=== PATIENT | male | born 1935 | race Caucasian/White ===

== ENCOUNTER → 2017-06-08 | Outpatient (CLI) | payer OTHER ==
[2017-06-08 17:34] LABS: BASO % 0.2 %; BASO ABS # 0.01 K/uL (0-0.2); EOS % 0.2 %; EOS ABS # 0.01 K/uL (0-0.5); HEMATOCRIT 37.7 % (42-52); HEMOGLOBIN 12.8 g/dL (14.0-18.0); IG# 0.02 K/uL (0.00-0.02); LYMPH % 22.9 %; LYMPH ABS # 1.42 K/uL (1.2-3.4); MEAN CELL VOLUME 92.6 fL (80-100); MEAN CORPUSCULAR HEMOGLOBIN 31.4 pg (25-34); MEAN PLATELET VOLUME 8.9 fL (7.4-10.4); MONO % 9.2 %; MONO ABS # 0.57 K/uL (0.11-0.59); NEUT % 67.2 %; NEUT ABS # 4.16 K/uL (1.4-6.5); PLATELET COUNT 238 K/uL (130-400); RED CELL DISTRIBUTION WIDTH CV 14.1 % (11.5-14.5); RED CELL DISTRIBUTION WIDTH SD 47.8 fL (36.4-46.3); WHITE BLOOD COUNT 6.19 K/uL (4.8-10.8)
--- NOTE | 2017-06-08 17:55 | DIAGNOSTIC IMAGING REPORT ---
PA CHEST RADIOGRAPH AND UPRIGHT AND SUPINE AP RADIOGRAPHS OF THE ABDOMEN CLINICAL HISTORY: Constipation. COMPARISON STUDY: No previous studies for comparison. FINDINGS: No pneumothorax or pleural effusion is noted. No consolidation is identified. There is no evidence for pulmonary edema. Linear right infrahilar opacity suggests atelectasis or scarring. Cardiomediastinal silhouette is normal. There is no free air. The bowel gas pattern is normal. There is a moderate amount stool within the colon. There is minimal stool within the rectum. There is marked joint space narrowing of both hips. IMPRESSION: 1. No free air or evidence of bowel obstruction. 2. Moderate amount of stool within the colon. 3. No acute cardiopulmonary findings. 4. Severe bilateral hip arthritis. Electronically signed by: Lester Sierra M.D. 06/08/2017 5:54 PM Dictated Date/Time: 06/08/2017 5:53 PM
[2017-06-08 17:56] LABS: ALBUMIN 3.4 gm/dl (3.4-5.0); ALT/SGPT 29 U/L (12-78); BLOOD UREA NITROGEN 18 mg/dl (7-18); CALCIUM 9.2 mg/dl (8.5-10.1); CARBON DIOXIDE 28 mmol/L (21-32); CREATININE 0.95 mg/dl (0.60-1.40); GLUCOSE 91 mg/dl (70-99); POTASSIUM 4.2 mmol/L (3.5-5.1); SODIUM 131 mmol/L (136-145)
[2017-06-08 18:06] LABS: ALKALINE PHOSPHATASE 115 U/L (45-117); AST/SGOT 23 U/L (15-37); TOTAL PROTEIN 8.6 gm/dl (6.4-8.2)
== END | disposition home or self-care (01) ==
LOC: C.RAD 16:43
PROVIDERS: ATTEND Physician Assistant
DX: K59.00 Constipation, unspecified (principal); M16.0 Bilateral primary osteoarthritis of hip

== ENCOUNTER → 2017-06-14 | Outpatient (CLI) | payer OTHER | END | disposition home or self-care (01) | LOC: C.LAB1850 15:27 | PROVIDERS: ATTEND Physician Assistant | DX: R35.0 Frequency of micturition (principal) ==

== ENCOUNTER 2019-01-16 15:37 | Inpatient (IN) ==
--- OUTSIDE RECORDS SUMMARY | 2019-01-16 15:39 | External Medical Summary | Continuity of Care Document ---
:1935 Author Name Jean Carlos Lawrence, Provider Address Unavailable Unavailable , Care Team Providers Name Role Phone Unavailable Unavailable Unavailable Regla Ro Unavailable [email or web address] REGLA ROBLES Unavailable Unavailable Unavailable Unavailable Unavailable Problems BMI less than 19,adult (V85.0) (Z68.1) Urinary frequency (788.41) (R35.0) Decreased oral intake (783.9) (R63.8) Constipation (564.00) (K59.00) Anemia (285.9) (D64.9) Bug bites (919.4) (W57.XXXA) Multiple joint pain (719.49) (M25.50) Altered mental status (780.97) (R41.82) Severe muscle deconditioning (781.99) (R29.898) Nocturia associated with benign prostatic hyperplasia (600.0 1) (N40.1) Allergies and Adverse Reactions No Known Drug Allergies (Allergy) Medications Finasteride 5 MG Oral Tablet; TAKE ONE TABLET BY MOUTH ONCE DAILY SELENA Robles Start: 08-Jan-2018 Quantity: 30 Refills: 2 Procedures History of cataract surgery Status: Comp leted Immunizations Immunizations not documented Social History - Smoking Status Never smoker Never smoker Interventions Medication ChangesFinasteride 5 MG Oral Tablet - [facility]; To Be Done: 23 Jan 2018 Plan of Treatment Planned Observations Planned Goals not documented Results No Known Results Results not documented Encounters Appointment; Regla Robles CRNP 08-Jan-2018 16:00 Encounter Diagnosis: Problem not documented Appointment; Regla Robles CRNP 13-Sep-2017 13:00 Encounter Diagnosis: Problem not documented Appointment; Paulette Buckner PA-C 14-Jun-2017 14:15 Encounter Diagnosis: Problem not documented Appointment; Hermelinda Tovar PA-C 08-Jun-2017 16:00 Encounter Diagnosis: Problem not documented
[2019-01-16] MEDS ORDERED: ACETAMINOPHEN 1,000 MG/100 ML VIAL IV STA (16:38)
[2019-01-16] MEDS ORDERED: SODIUM CHLORIDE 0.9% 1000ML 1,000 ML IV SCH (16:45)
[2019-01-16 17:18] LABS: Basophils # (auto) 0.01 K/uL (0-0.2); Basophils % (auto) 0.1 %; Eosinophils # (auto) 0.01 K/uL (0-0.5); Eosinophils % (auto) 0.1 %; Hematocrit (blood only) 39.7 % (42-52); Hemoglobin 13.3 g/dL (14.0-18.0); Immature Granulocytes # (auto) 0.05 K/uL (0.00-0.02); Immature Granulocytes % (auto) 0.4 %; Lymphocytes # (auto) 1.13 K/uL (1.2-3.4); Lymphocytes % (auto) 9.6 %; Mean Corpuscular Hemoglobin 30.5 pg (25-34); Mean Corpuscular Hgb Conc 33.5 g/dL (32-36); Mean Corpuscular Volume 91.1 fL (80-100); Mean Platelet Volume 9.1 fL (7.4-10.4); Monocytes # (auto) 0.89 K/uL (0.11-0.59); Monocytes % (auto) 7.5 %; Neutrophils % (auto) 82.3 %; Platelet Count 332 K/uL (130-400); RDW Coefficient of Variation 14.2 % (11.5-14.5); RDW Standard Deviation 46.5 fL (36.4-46.3); Red Blood Count 4.36 M/uL (4.7-6.1); White Blood Count 11.79 K/uL (4.8-10.8)
[2019-01-16 17:45] LABS: Albumin Level 2.6 gm/dl (3.4-5.0); Calcium 9.3 mg/dl (8.5-10.1); Creatinine Clr Calc Pharmacy 43.2 ml/min; Est GFR (African American) 87.7; Est GFR (Non-African American) 75.7
[2019-01-16 17:54] LABS: Albumin Globulin Ratio 0.5 (0.9-2); Bilirubin,Total 1.1 mg/dl (0.2-1); Globulin 5.1 gm/dl (2.5-4.0); Thyroid Stimulating Hormone 1.85 uIu/ml (0.300-4.500); Total Protein 7.7 gm/dl (6.4-8.2); Troponin I 3.1 ng/ml (0-0.045)
--- NOTE | 2019-01-16 18:09 | CT Scan Report ---
CT SCAN OF THE BRAIN WITHOUT IV CONTRAST CLINICAL HISTORY: Fall. Weakness. COMPARISON STUDY: CT of the brain dated 01/05/2018. TECHNIQUE: Unenhanced axial CT scan of the brain is performed from the vertex to the skull base. A do se lowering technique was utilized adhering to the principles of ALARA. FINDINGS: Brain parenchyma: There are age-related involutional changes noting mild to moderate subcortical and periventricular microangiopathic change. There is no hemorrhage, mass effect, or evidence of acute t erritorial ischemia by CT criteria. 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 Hall-white matter differentiation is preserved. No extra-axial fluid collect ion is seen. Ventricles, sulci, cisterns: Prominent secondary to involutional change. Intracranial vasculature: There is atherosclerotic calcification of the cavernous carotid and vertebr al arteries. Calvarium: The skeletal structures are osteopenic. No depressed calvarial fracture is identified. Sinuses and mastoids: The visualized paranasal sinuses are clear. The mastoid air cells are well pneu matized. Orbits: The bony orbits are grossly intact. There are bilateral ocular lens implants. IMPRESSION: There is no hemorrhage, mass effect, or evidence of acute territorial ischemia by CT francine louis. Electronically signed by: Zane Haines M.D. 01/16/2019 6:07 PM
--- NOTE | 2019-01-16 18:13 | CT Scan Report ---
CT SCAN OF THE CERVICAL SPINE CLINICAL HISTORY: Fall. COMPARISON STUDY: No priors. TECHNIQUE: CT scan of the cervical spine is performed from the skull base to the upper thoracic spine . Images are reviewed in the axial, sagittal, and coronal planes. IV contrast was not administered fo r this examination. A dose lowering technique was utilized adhering to the principles of ALARA. CT DOSE: 987.04 mGy.cm FINDINGS: Skeletal structures: The skeletal structures are osteopenic. There is no evidence of fracture or subl uxation involving the cervical spine. Vertebral body height and alignment are maintained. Small anter ior osteophytes are seen throughout. The odontoid process and lateral masses are intact. The atlantoa xial articulation is preserved noting productive degenerative change. The spinous processes appear in tact. There is moderate multilevel cervical spondylosis. Uncovertebral and facet arthropathy contribu te to neural foraminal narrowing at several levels. Intervertebral discs: Moderate disc space narrowing is seen at C4-C5 and C5-C6. Mild disc space narro wing is seen at the remaining cervical levels. Central canal: Posterior disc osteophyte complexes from C3-C4 through C5-C6 likely contribute to mild multilevel acquired compromise the central canal. Soft tissues: The prevertebral and paraspinous soft tissues are within normal limits. Secretions/flui d are noted in the pharynx. There is atherosclerotic calcification of the carotid bulbs. Calvarium: The visualized calvarium at the skull base appears intact. Brain parenchyma: Partially visualized brain parenchyma the skull base is within normal limits. Sinuses and mastoids: The visualized paranasal sinuses are clear. The mastoid air cells are well pneu matized. Lung apices: Clear as visualized. IMPRESSION: 1. There is no evidence of fracture or subluxation involving the cervical spine. 2. Osteopenia and spondylotic change as above. Electronically signed by: Zane Haines M.D. 01/16/2019 6:12 PM
[2019-01-16 18:41] LABS: Potassium 3.8 mmol/L (3.5-5.1)
[2019-01-16 18:49] LABS: Magnesium 2.1 mg/dl (1.8-2.4)
--- NOTE | 2019-01-16 19:11 | XRay Report ---
SINGLE VIEW CHEST CLINICAL HISTORY: Generalized weakness. FINDINGS: 2 AP, portable, upright chest radiographs are compared to study dated 01/05/2018. The examin ation is degraded by portable technique and patient rotation. The heart is top normal for projection noting atherosclerotic calcification of the thoracic aorta. The lungs are hyperinflated. Chronic inte rstitial thickening is similar to previous. There are foci of bibasilar scarring/atelectasis. No airs pace consolidation or large pleural effusion is identified. No pneumothorax is seen. The bony thorax is grossly intact. IMPRESSION: There is no acute cardiopulmonary abnormality. Electronically signed by: Zane Haines M.D. 01/16/2019 7:09 PM
[2019-01-16 19:22] LABS: Appearance Urine Clear (Clear); Bacteria Urine Automated Negative (Negative); Blood Urine Negative (Negative); Color Urine Dark Yellow; Epithelial Cell Urine Auto >30 /lpf (0-5); Glucose Urine UA Negative (Negative); Leukocyte Esterase Urine Negative (Negative); Nitrite Urine Negative (Negative); Protein Urine Trace (Negative); Specific Gravity Urine 1.033 (1.000-1.030); Urobilinogen Urine Negative (Negative)
[2019-01-16 19:25] LABS: Bilirubin Urine Negative (Negative); Ictotest Urine Negative (Negative)
[2019-01-16 19:26] LABS: Ketones Urine 3+ (Negative)
[2019-01-16 19:34] LABS: Renal Epithelial Cells Urine 0-5 /lpf (0-5)
--- NOTE | 2019-01-16 20:08 | Emergency Department Note ---
Entered by Naomi Mcnamara acting as a scribe for History of Present Illness General Chief complaint: Weakness Stated complaint: UNABLE TO AMBULATE, WEAKNESS Time Seen by Provider: 01/16/19 16:21 Source: patient and family History of Present Illness Onset (ago): week(s) 1 Location: head (Weakness) Severity: similar to prior episodes Pain Consistency: + other (Worsening) Maximum Pain Intensity: 6 Quality: + other (Weakness) Exacerbated By: + movement Associated symptoms: + loss of appetite, + weakness and + other (Positive recent falls. Negative head trauma. ); no fever/chills Treatments prior to arrival: none The patient is an 83 year old male who presents to the Emergency Department via EMS complaining of worsening weakness starting 1 week ago. The patients family reports that the patient is very weak and unable to walk. They state that the patient has fallen a few times in the past few days. They explain that from falling, the patient has multiple abrasions on his hips, buttocks and shoulder and that they may be turning into bedsores. They note that the patient compla ins of always having to go to the bathroom. They add that the patient has no appetite and doesnt drink much fluid but that this is not a new problem. The patients family reports that [facility] for [facility] symptoms but were told to come to the ED. They explain that when the patient moves around his pain from his abrasions/sores worsen. They state that the patient took no medications [employer]. They note that the patient currently takes no medications. They deny that the patient has had recent fevers, chills or head trauma. Home Medications Home Medications Medication Instructions Recorded Confirmed Type No Known Home Medications 01/16/19 01/16/19 History Allergies Allergy/AdvReac Type Severity Reaction Status Date / Time No Known Allergies Allergy Unverified 01/16/19 16:37 Past Med/Surg History Medical History Severe protein-calorie malnutrition (Chronic) Weakness (Chronic) Weight loss (Chronic) Dementia Family History Other No pertinent family history Social History Preferred Language: Turkmen Communication Ability: Effective Current Living Situation Comment: [facility] current occupational status: retired Feels Safe at Home: Yes Smoking Status: Never smoker Review of Systems See HPI for pertinent positives & negatives. and A total of 10 systems reviewed and were otherwise negative Physical Exam Vital Signs Vital Signs - 24 hr 01/16/19 15:48 01/16/19 17:06 01/16/19 19:13 Temperature 36.4 C L Temperature Source Oral Sepsis Recent Fever Within 48 Hours No Sepsis New/Unexplained Change in Mental Status No Sepsis Action Taken by Nursing No Action Required Pulse Rate 92 H 75 Pulse Rate [Apical] 83 77 Pulse Rate from SpO2 Sensor 73 Respiratory Rate 18 18 19 Blood Pressure 156/83 H 121/73 Blood Pressure [Left Arm] 153/83 H 148/77 H Blood Pressure Mean 107 89 Blood Pressure Mean [Left Arm] 106 100 Pulse Oximetry 100 100 98 Oxygen Delivery Method Room Air Room Air Room Air 01/16/19 19:30 01/16/19 20:00 01/16/19 21:00 Temperature Temperature Source Sepsis Recent Fever Within 48 Hours Sepsis New/Unexplained Change in Mental Status Sepsis Action Taken by Nursing Pulse Rate 76 73 74 Pulse Rate [Apical] Pulse Rate from SpO2 Sensor 76 70 74 Respiratory Rate 18 16 18 Blood Pressure 102/66 124/67 125/72 Blood Pressure [Left Arm] Blood Pressure Mean 78 86 89 Blood Pressure Mean [Left Arm] Pulse Oximetry 98 97 96 Oxygen Delivery Method 01/16/19 21:13 Temperature Temperature Source Sepsis Recent Fever Within 48 Hours Sepsis New/Unexplained Change in Mental Status Sepsis Action Taken by Nursing Pulse Rate 73 Pulse Rate [Apical] Pulse Rate from SpO2 Sensor Respiratory Rate 16 Blood Pressure 124/67 Blood Pressure [Left Arm] Blood Pressure Mean Blood Pressure Mean [Left Arm] Pulse Oximetry 97 Oxygen Delivery Method Room Air GENERAL: Patient is frail and debilitated. HEENT: No acute trauma, normocephalic atraumatic, mucous membranes dry, no nasal congestion, no scleral icterus. NECK: No stridor, no adenopathy, no meningismus, trachea is midline. Non-tender cervical spine. LUNGS: Clear to auscultation bilaterally, no wheeze, no rhonchi, breath sounds equal. HEART: Without murmurs gallops or rubs, regular rate and rhythm. ABDOMEN: Soft, nontender, bowel sounds positive, no hernias, no peritonitis. EXTREMITIES: Contusion and abrasion to anterior left knee. No gross deformity. Skin abrasions to both shoulders. No gross deformities. Skin breakdown to right sacral area and hip. No surrounding erythema. NEUROLOGIC: Awake and alert, no acute motor or sensory deficits, no focal weakness. SKIN: No jaundice, no diaphoresis. Course 1626: The patient was evaluated in room C10, and a complete history and physical examination were performed. 1730: I updated the patient at this time. 1829: I discussed the patients case with Dr. Obed MANZANO hospitalist. She will evaluate the patient for further management. 1840: I updated the patient and his family at this time. 185: The patient refused his X-Ray of his knee. 1925: I updated the patient and his family on the patients results at this time. Consultations Consultation #1: I discussed the patients case with Dr. Obed MANZANO hospitalist. She will evaluate the patient for further management. Time: 18:29 Administered Medications Discontinued Medications Sodium Chloride (Nss 1000ml) 1,000 mls @ 999 mls/hr IV .[id number] ARCELIA Stop: 01/16/19 17:45 Last Infusion: 01/16/19 18:29 Dose: 0 mls/hr Documented by: [id number] Admin: 01/16/19 17:06 Dose: 999 mls/hr Documented by: [id number] Acetaminophen (Ofirmev) 1,000 mg in 100 mls @ 400 mls/hr IV NOW STA Stop: 01/16/19 16:52 Last Infusion: 01/16/19 18:29 Dose: 0 mls/hr Documented by: [id number] Admin: 01/16/19 17:06 Dose: 400 mls/hr Documented by: [id number] Medical Decision Making Differential Diagnosis Differentials include intracranial bleeding, CVA, cervical spine injury, fracture, dehydration, anemia, UTI, pneumonia, renal failure, live failure, NE and debilitation amongst others. Medical Records Attestation: I reviewed the patient's medical records. Home Medications Current Medication List: was personally reviewed by me Laboratory Data Attestation: I reviewed the patient's lab results. Result diagrams: 01/16/19 17:09 01/16/19 18:07 Lab Results 01/16/19 01/16/19 01/16/19 Range/Units 17:09 17:09 18:07 WBC 11.79 H (4.8-10.8) K/uL RBC 4.36 L (4.7-6.1) M/uL Hgb 13.3 L (14.0-18.0) g/dL Hct 39.7 L (42-52) % MCV 91.1 (80-100) fL MCH 30.5 (25-34) pg MCHC 33.5 (32-36) g/dL RDW Std Deviation 46.5 H (36.4-46.3) fL RDW Coeff of [place] 14.2 (11.5-14.5) % Plt Count 332 (130-400) K/uL MPV 9.1 (7.4-10.4) fL Immature Gran % (Auto) 0.4 % Neut % (Auto) 82.3 % Lymph % (Auto) 9.6 % [place] % (Auto) 7.5 % Eos % (Auto) 0.1 % Baso % (Auto) 0.1 % Immature Gran # (Auto) 0.05 H (0.00-0.02) K/uL Neut # (Auto) 9.70 H (1.4-6.5) K/uL Lymph # (Auto) 1.13 L (1.2-3.4) K/uL [place] # (Auto) 0.89 H (0.11-0.59) K/uL Eos # (Auto) 0.01 (0-0.5) K/uL Baso # (Auto) 0.01 (0-0.2) K/uL Sodium 136 (136-145) mmol/L Potassium 3.8 (3.5-5.1) mmol/L Chloride 102 (98-107) mmol/L Carbon Dioxide 25 (21-32) mmol/L Anion Gap 9.0 (3-11) BUN 25 H (7-18) mg/dl Creatinine 0.93 (0.6-1.4) mg/dl Est Cr Clr Drug Dosing 43.2 ml/min Est GFR ( Amer) 87.7 Est GFR (Non-Af Amer) 75.7 BUN/Creatinine Ratio 27.0 H (10-20) Glucose 80 (70-99) mg/dl Calcium 9.3 (8.5-10.1) mg/dl Magnesium 2.1 (1.8-2.4) mg/dl Total Bilirubin 1.1 H (0.2-1) mg/dl AST 60 H (15-37) U/L ALT 35 (12-78) U/L Alkaline Phosphatase 127 H (45-117) U/L Total Creatine Kinase 232 (39-308) U/L Troponin I 3.100 H* (0-0.045) ng/ml Total Protein 7.7 (6.4-8.2) gm/dl Albumin 2.6 L (3.4-5.0) gm/dl Globulin 5.1 H (2.5-4.0) gm/dl Albumin/Globulin Ratio 0.5 L (0.9-2) TSH 1.850 (0.300-4.500) uIu/ml Urine Color Urine Appearance (Clear) Urine pH (4.5-7.5) Ur Specific [place] (1.000-1.030) Urine Protein (Negative) Urine Glucose (UA) (Negative) Urine Ketones (Negative) Urine Blood (Negative) Urine Nitrite (Negative) Urine Bilirubin (Negative) Urine Urobilinogen (Negative) Ur Leukocyte Esterase (Negative) Urine WBC (Auto) (0-5) /hpf Urine RBC (Auto) (0-4) /hpf U Hyaline Cast (Auto) (0-5) /lpf U Epithel Cells (Auto) (0-5) /lpf Urine Bacteria (Auto) (Negative) Ur Renal Epithelial Cell (0-5) /lpf Granular Casts (0) /lpf 01/16/19 Range/Units 19:08 WBC (4.8-10.8) K/uL RBC (4.7-6.1) M/uL Hgb (14.0-18.0) g/dL Hct (42-52) % MCV (80-100) fL MCH (25-34) pg MCHC (32-36) g/dL RDW Std Deviation (36.4-46.3) fL RDW Coeff of [place] (11.5-14.5) % Plt Count (130-400) K/uL MPV (7.4-10.4) fL Immature Gran % (Auto) % Neut % (Auto) % Lymph % (Auto) % [place] % (Auto) % Eos % (Auto) % Baso % (Auto) % Immature Gran # (Auto) (0.00-0.02) K/uL Neut # (Auto) (1.4-6.5) K/uL Lymph # (Auto) (1.2-3.4) K/uL [place] # (Auto) (0.11-0.59) K/uL Eos # (Auto) (0-0.5) K/uL Baso # (Auto) (0-0.2) K/uL Sodium (136-145) mmol/L Potassium (3.5-5.1) mmol/L Chloride (98-107) mmol/L Carbon Dioxide (21-32) mmol/L Anion Gap (3-11) BUN (7-18) mg/dl Creatinine (0.6-1.4) mg/dl Est Cr Clr Drug Dosing ml/min Est GFR ( Amer) Est GFR (Non-Af Amer) BUN/Creatinine Ratio (10-20) Glucose (70-99) mg/dl Calcium (8.5-10.1) mg/dl Magnesium (1.8-2.4) mg/dl Total Bilirubin (0.2-1) mg/dl AST (15-37) U/L ALT (12-78) U/L Alkaline Phosphatase (45-117) U/L Total Creatine Kinase (39-308) U/L Troponin I (0-0.045) ng/ml Total Protein (6.4-8.2) gm/dl Albumin (3.4-5.0) gm/dl Globulin (2.5-4.0) gm/dl Albumin/Globulin Ratio (0.9-2) TSH (0.300-4.500) uIu/ml Urine Color Dark Yellow Urine Appearance Clear (Clear) Urine pH 5.0 (4.5-7.5) Ur Specific [place] 1.033 H (1.000-1.030) Urine Protein Trace H (Negative) Urine Glucose (UA) Negative (Negative) Urine Ketones 3+ H (Negative) Urine Blood Negative (Negative) Urine Nitrite Negative (Negative) Urine Bilirubin Negative (Negative) Urine Urobilinogen Negative (Negative) Ur Leukocyte Esterase Negative (Negative) Urine WBC (Auto) 1-5 (0-5) /hpf Urine RBC (Auto) 5-10 H (0-4) /hpf U Hyaline Cast (Auto) 10-30 H (0-5) /lpf U Epithel Cells (Auto) >30 H (0-5) /lpf Urine Bacteria (Auto) Negative (Negative) Ur Renal Epithelial Cell 0-5 (0-5) /lpf Granular Casts 1-5 H (0) /lpf Imaging Data Radiologist's Impression: Radiology results as stated below per my review and the radiologist's interpretation: CT SCAN OF THE BRAIN WITHOUT IV CONTRAST CLINICAL HISTORY: Fall. Weakness. COMPARISON STUDY: CT of the brain dated 01/05/2018. TECHNIQUE: Unenhanced axial CT scan of the brain is performed from the vertex to the skull base. A dose lowering technique was utilized adhering to the principles of ALARA. FINDINGS: Brain parenchyma: There are age-related involutional changes noting mild to moderate subcortical and periventricular microangiopathic change. There is no hemorrhage, mass effect, or evidence of acute territorial ischemia by CT criter ia. 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 Hall-white matter differentiation is preserved. No extra-axial fluid collection is seen. Ventricles, sulci, cisterns: Prominent secondary to involutional change. Intracranial vasculature: There is atherosclerotic calcification of the cavernous carotid and vertebral arteries. Calvarium: The skeletal structures are osteopenic. No depressed calvarial fracture is identified. Sinuses and mastoids: The visualized paranasal sinuses are clear. The mastoid air cells are well pneumatized. Orbits: The bony orbits are grossly intact. There are bilateral ocular lens implants. IMPRESSION: There is no hemorrhage, mass effect, or evidence of acute territorial ischemia by CT criteria. Electronically signed by: Zane Haines M.D. 01/16/2019 6:[address] SCAN OF THE CERVICAL SPINE CLINICAL HISTORY: Fall. COMPARISON STUDY: No priors. TECHNIQUE: CT scan of the cervical spine is performed from the skull base to the upper thoracic spine. Images are reviewed in the axial, sagittal, and coronal planes. IV contrast was not administered for this examination. A dose lowering technique was utilized adhering to the principles of ALARA. CT DOSE: 987.04 mGy.cm FINDINGS: Skeletal structures: The skeletal structures are osteopenic. There is no evidence of fracture or subluxation involving the cervical spine. Vertebral body height and alignment are maintained. Small anterior osteophytes are seen throughout. The odontoid process and lateral masses are intact. The atlantoaxial articulation is preserved noting productive degenerative change. The spinous processes appear intact. There is moderate multilevel cervical spondylosis. Uncovertebral and facet arthropathy contribute to neural foraminal narrowing at several levels. Intervertebral discs: Moderate disc space narrowing is seen at C4-C5 and C5-C6. Mild disc space narrowing is seen at the remaining cervical levels. Central canal: Posterior disc osteophyte complexes from C3-C4 through C5-C6 likely contribute to mild multilevel acquired compromise the central canal. Soft tissues: The prevertebral and paraspinous soft tissues are within normal limits. Secretions/fluid are noted in the pharynx. There is atherosclerotic calcification of the carotid bulbs. Calvarium: The visualized calvarium at the skull base appears intact. Brain parenchyma: Partially visualized brain parenchyma the skull base is within normal limits. Sinuses and mastoids: The visualized paranasal sinuses are clear. The mastoid air cells are well pneumatized. Lung apices: Clear as visualized. IMPRESSION: 1. There is no evidence of fracture or subluxation involving the cervical spine. 2. Osteopenia and spondylotic change as above. Electronically signed by: Zane Haines M.D. 01/16/2019 6:12 PM SINGLE VIEW CHEST CLINICAL HISTORY: Generalized weakness. FINDINGS: 2 AP, portable, upright chest radiographs are compared to study dated 01/05/2018. The examination is degraded by portable technique and patient rotation. The heart is top normal for projection noting atherosclerotic calcification of the thoracic aorta. The lungs are hyperinflated. Chronic interstitial thickening is similar to previous. There are foci of bibasilar scarring/atelectasis. No airspace consolidation or large pleural effusion is identified. No pneumothorax is seen. The bony thorax is grossly intact. IMPRESSION: There is no acute cardiopulmonary abnormality. Electronically signed by: Zane Haines M.D. 01/16/2019 7:09 PM ECG Data Attestation: I personally reviewed and interpreted this ECG as follows: Indication: weakness Rate (beats per minute): 90 Rhythm: sinus rhythm Findings: + other (Artifact noted. QTC 486.), + PAC and + T-wave inversion (in lateral leads); no ST elevation Comparison ECG Date: from (01/05/18) Change: the following changes noted (Lateral T wave changes are more prominent) Blood Pressure Blood Pressure Findings: Elevated blood pressure Blood Pressure Disposition: further management by hospitalist [facility] Narrative There is a mild leukocytosis at 11,000, this could be consistent with infection or the stress of his current situation. No worrisome anemia. Renal panel testing did not show kidney failure or significant electrolyte abnormality. There were a few subtle liver enzyme elevations. The patient appeared to be in a euthyroid state. Urinalysis showed ketones, no signs of infection. Brain CT shows no acute bleed or mass-effect. C-spine CT shows no acute fracture. Chest film does not show pneumonia or CHF. Of note, the patient did refuse his left knee film. EKG shows a sinus rhythm, there is some T wave inversion in the lateral leads, this is more pronounced than on previous EKGs. Cardiac troponin returned elevated at 3, this is consistent with cardiac injury or strain. Total CK is not significantly elevated making rhabdomyolysis unlikely. The patient was given IV Tylenol, he received IV saline, 1 L. His areas of skin breakdown were cleansed and dressed. The patient has multiple areas of skin breakdown from laying in one position. He is debilitated, dehydrated, quite weak. He has findings suggesting cardiac injury or strain. He is too weak to stand. He cannot even get himself out of bed. I do think a hospital stay is warranted. I spoke to the patient and his son, I spoke with case management. The on-call hospitalist was consulted. Impression & Plan Weakness, Debilitated, Skin breakdown, Acute electrocardiogram changes, Elevated troponin, Fall Discharge Plan Visit Data Chief Complaint: Weakness Stated Complaint: UNABLE TO AMBULATE, WEAKNESS ED Provider: Zane Pederson Discharge Problem: Weakness, Debilitated, Skin breakdown, Acute electrocardiogram changes, Elevated troponin, Fall Patient Disposition: Being Evaluated by Hospitalist Discharge Instructions Interventions: ED Discharge Assessment Last Done: 01/16/19 21:13 Forms Stand Alone Forms: My [facility] [employer] Prescriptions Prescriptions: No Action No Known Home Medications RF: 0 Referrals Referrals: Monique Robles CRNP [Primary Care Provider] - Discharge Problem: Fall Qualifiers: Encounter type: initial encounter Qualified Code(s): W19.XXXA - Unspecified fall, initial encounter The scribe's documentation has been prepared under my direction and personally reviewed by me in its entirety. I confirm that the note above accurately reflects all work, treatment, procedures, and medical decision making performed by me.
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
[2019-01-16] MEDS ORDERED: POLYETHYLENE (MIRALAX) 17 GM PACK PO PRN (21:39)
[2019-01-16] MEDS ORDERED: ACETAMINOPHEN 325 MG TAB PO PRN (21:39)
[2019-01-16] MEDS: HEPARIN SOD 5,000 UNIT/0.5 ML VIAL SQ SCH (22:19)
[2019-01-16] MEDS: LACTATED RINGER'S 1,000 ML IV SCH (22:20)
--- NOTE | 2019-01-16 23:02 | XRay Report ---
KUB CLINICAL HISTORY: Constipation. FINDINGS: An AP, portable, supine abdominal radiograph is compared to study dated 12/09/2017 and corre lated with abdominal CT dated 12/07/2017. There is a nonobstructed abdominal bowel gas pattern. Modera te to severe constipation is observed. No evidence of intraperitoneal free air is seen on this supine examination. 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 The skeletal structures are osteopenic. The bony structures are grossly intact. Advanced d egenerative change is present in the hips, left greater than right. The lung bases are clear as image d. IMPRESSION: Moderate to severe constipation. Electronically signed by: Zane Haines M.D. 01/16/2019 11:01 PM
[2019-01-16] MEDS ORDERED: MAGNESIUM HYDROXIDE SUSP 30 ML UDC PO PRN (23:32)
[2019-01-16] MEDS ORDERED: DOCUSATE SODIUM 100 MG CAP PO ONE (23:45)
[2019-01-17 05:54] LABS: Estimated Average Glucose 100 mg/dl; Hemoglobin A1C 5.1 % (4.5-5.6)
[2019-01-17 06:28] LABS: Phosphorus 2.4 mg/dl (2.5-4.9); Troponin I 2.27 ng/ml (0-0.045)
[2019-01-17] MEDS ORDERED: SODIUM CHLORIDE 0.9% 500 ML IV SCH (06:30)
[2019-01-17] MEDS: ATORVASTATIN 40 MG TAB PO SCH ×2 (08:12→08:47)
[2019-01-17] MEDS: LACTATED RINGER'S 1,000 ML IV SCH ×3 (08:12→20:55)
[2019-01-17] MEDS: ASPIRIN 81 MG ECTAB PO SCH (08:12)
[2019-01-17] MEDS: HEPARIN SOD 5,000 UNIT/0.5 ML VIAL SQ SCH ×2 (08:13→20:47)
[2019-01-17] MEDS: DOCUSATE SODIUM 100 MG CAP PO SCH ×2 (08:13→20:58)
[2019-01-17] MEDS ORDERED: METOPROLOL TARTRATE 25 MG TAB PO STA (15:19)
[2019-01-17] MEDS ORDERED: METOPROLOL TARTRATE 25 MG TAB PO SCH (15:30)
--- NOTE | 2019-01-17 16:10 | XRay Report ---
AP PELVIS AND BILATERAL HIPS 5 VIEWS CLINICAL HISTORY: Bilateral hip pain COMPARISON STUDY: No previous studies for comparison. FINDINGS: No acute fractures are visualized. There are severe bilateral arthritic changes present. IMPRESSION: Severe bilateral hip arthritis. No acute fractures. Electronically signed by: Agustin Waldron M.D. 01/17/2019 4:09 PM
[2019-01-17] MEDS ORDERED: IOVERSOL 100ml IV PRN (19:34)
--- NOTE | 2019-01-17 19:56 | CT Scan Report ---
CT abd pelvis IV con only CLINICAL HISTORY: Unintentional weight loss. Possible metastatic disease. COMPARISON STUDY: December 07, 2017 TECHNIQUE: The patient was scanned in a dynamic helical fashion during intravenous administration of 90 cc of Optiray 320. A dose lowering technique was utilized adhering to the principles of ALARA. CT DOSE: 263.36 mGy.cm FINDINGS: Lower chest: There is persistent right middle lobe and lingular atelectasis/scarring. There are no si gnificant pleural effusions. Liver: The contrast-enhanced liver is normal in size, contour, and attenuation. There is no intrahepa tic biliary ductal dilatation. The hepatic veins and portal veins are patent. Gallbladder: Minimally distended. No calculi identified. Spleen: Normal in size and attenuation. Pancreas: Evaluation is somewhat limited due to streak artifact from the patient's arms. There is a s uspected 13 mm cystic pancreatic tail lesion. Adrenal glands: Unremarkable. Kidneys: There is a 7 mm left renal hypodensity, likely representing a cyst. There is no hydronephros is. Bowel: There are no transition zones indicate bowel obstruction. There is no evidence of acute divert iculitis. There are no findings to indicate acute appendicitis. Peritoneum: There is no intraperitoneal free air or abdominal ascites. Vasculature: The abdominal aorta is normal in course and caliber. Adenopathy: None. Pelvic viscera: The bladder, and pelvic viscera are unremarkable. Skeletal structures: No destructive lesions are visualized. There are advanced osteoarthritic changes involving the hips. There is mild body wall edema. IMPRESSION: 1. Mildly limited study from a technical standpoint 2. Mild gallbladder distention. No calculi identified. No gallbladder wall thickening. 3. No evidence of bowel obstruction. No evidence of free air 4. Mild fecal retention 5. No evidence of acute diverticulitis. No evidence of acute appendicitis. 6. No evidence of pathologic adenopathy 7. 13 mm cystic pancreatic tail lesion 8. Severe arthritic changes within the hips Electronically signed by: Agustin Waldron M.D. 01/17/2019 7:54 PM
[2019-01-17] MEDS: METOPROLOL TARTRATE 25 MG TAB PO SCH (20:47)
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
[2019-01-18] MEDS: LACTATED RINGER'S 1,000 ML IV SCH ×3 (04:44→21:10)
[2019-01-18 07:02] LABS: Eosinophils # (auto) 0.03 K/uL (0-0.5); Eosinophils % (auto) 0.5 %; Hematocrit (blood only) 32.3 % (42-52); Hemoglobin 10.9 g/dL (14.0-18.0); Immature Granulocytes # (auto) 0.02 K/uL (0.00-0.02); Immature Granulocytes % (auto) 0.3 %; Lymphocytes # (auto) 1.11 K/uL (1.2-3.4); Lymphocytes % (auto) 16.7 %; Mean Corpuscular Hemoglobin 30.8 pg (25-34); Mean Corpuscular Hgb Conc 33.7 g/dL (32-36); Mean Corpuscular Volume 91.2 fL (80-100); Mean Platelet Volume 8.7 fL (7.4-10.4); Monocytes # (auto) 0.47 K/uL (0.11-0.59); Monocytes % (auto) 7.1 %; Neutrophils # (auto) 5.01 K/uL (1.4-6.5); Neutrophils % (auto) 75.4 %; Platelet Count 243 K/uL (130-400); RDW Standard Deviation 46.4 fL (36.4-46.3); Red Blood Count 3.54 M/uL (4.7-6.1); White Blood Count 6.64 K/uL (4.8-10.8)
[2019-01-18 07:39] LABS: Albumin Globulin Ratio 0.6 (0.9-2); Albumin Level 1.9 gm/dl (3.4-5.0); BUN Creatinine Ratio 24.6 (10-20); Bilirubin,Total 0.6 mg/dl (0.2-1); Calcium 8.5 mg/dl (8.5-10.1); Creatinine Clr Calc Pharmacy 71.1 ml/min; Est GFR (African American) 106.3; Est GFR (Non-African American) 91.7; Ferritin 301.9 ng/ml (8-388); Globulin 3.4 gm/dl (2.5-4.0); Magnesium 1.7 mg/dl (1.8-2.4); Potassium 3.7 mmol/L (3.5-5.1); Total Protein 5.3 gm/dl (6.4-8.2)
[2019-01-18 07:42] LABS: Folate (Folic Acid) 4.97 ng/ml (>5.38)
[2019-01-18] MEDS: DOCUSATE SODIUM 100 MG CAP PO SCH ×2 (07:49→21:12)
[2019-01-18] MEDS: ASPIRIN 81 MG ECTAB PO SCH (07:49)
[2019-01-18] MEDS: HEPARIN SOD 5,000 UNIT/0.5 ML VIAL SQ SCH (07:49)
[2019-01-18] MEDS: METOPROLOL TARTRATE 25 MG TAB PO SCH (08:12)
[2019-01-18] MEDS ORDERED: GLYCERIN ADULT 12 SUPP/BOX SUPP PR ONE (08:45)
[2019-01-18] MEDS ORDERED: MINERAL OIL ENEMA 133 ML BTL PR ONE (08:46)
[2019-01-18] MEDS: FOLIC ACID 1 MG TAB PO SCH (10:15)
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
[2019-01-18] MEDS ORDERED: MIRTAZAPINE TAB 15 MG TAB PO SCH (21:00)
[2019-01-18] MEDS ORDERED: POTASSIUM PHOSPHATE 9 MMOL in SODIUM CHLORIDE 0.9% 250 ML IV ONE (23:00)
[2019-01-19] MEDS: LACTATED RINGER'S 1,000 ML IV SCH ×3 (04:37→20:17)
[2019-01-19] MEDS ORDERED: POTASSIUM PHOS 3 MMOL/1 ML INFUSION IV ONE (07:00)
[2019-01-19] MEDS: FLINTSTONES COMPLETE CHEWABLE TAB PO SCH (08:30)
[2019-01-19] MEDS: ASPIRIN 81 MG ECTAB PO SCH (08:30)
[2019-01-19] MEDS: dexAMETHasone 4 MG TAB PO SCH (08:30)
[2019-01-19] MEDS: MAGNESIUM OXIDE 400 MG TAB PO SCH ×2 (08:30→20:20)
[2019-01-19] MEDS: THIAMINE HCL 100 MG TAB PO SCH (08:30)
[2019-01-19] MEDS: PANTOprazole 40 MG TAB PO SCH (08:30)
[2019-01-19] MEDS: ERGOCALCIFEROL 50,000 UNITS CAP PO SCH (08:30)
[2019-01-19] MEDS: DOCUSATE SODIUM 100 MG CAP PO SCH (08:30)
[2019-01-19] MEDS: PSYLLIUM 58.6% POWDER PACKET PO SCH (08:30)
[2019-01-19] MEDS: FOLIC ACID 1 MG TAB PO SCH (08:30)
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
[2019-01-19] MEDS: MIRTAZAPINE SOLTAB 15 MG PO SCH ×2 (20:28→21:07)
[2019-01-20] MEDS: LACTATED RINGER'S 1,000 ML IV SCH (04:03)
[2019-01-20] MEDS: dexAMETHasone 4 MG TAB PO SCH (08:00)
[2019-01-20] MEDS: THIAMINE HCL 100 MG TAB PO SCH (08:00)
[2019-01-20] MEDS: FOLIC ACID 1 MG TAB PO SCH (08:00)
[2019-01-20] MEDS: FLINTSTONES COMPLETE CHEWABLE TAB PO SCH (08:00)
[2019-01-20] MEDS: PANTOprazole 40 MG TAB PO SCH (08:00)
[2019-01-20] MEDS: PSYLLIUM 58.6% POWDER PACKET PO SCH (08:00)
[2019-01-20] MEDS: MAGNESIUM OXIDE 400 MG TAB PO SCH ×2 (08:00→20:41)
[2019-01-20] MEDS: ASPIRIN 81 MG ECTAB PO SCH (08:00)
[2019-01-20 08:02] LABS: Basophils # (auto) 0.01 K/uL (0-0.2); Basophils % (auto) 0.1 %; Eosinophils # (auto) 0.04 K/uL (0-0.5); Eosinophils % (auto) 0.3 %; Hematocrit (blood only) 34.7 % (42-52); Hemoglobin 11.9 g/dL (14.0-18.0); Immature Granulocytes # (auto) 0.06 K/uL (0.00-0.02); Immature Granulocytes % (auto) 0.5 %; Lymphocytes # (auto) 1.06 K/uL (1.2-3.4); Mean Corpuscular Hemoglobin 30.1 pg (25-34); Mean Corpuscular Hgb Conc 34.3 g/dL (32-36); Mean Corpuscular Volume 87.6 fL (80-100); Mean Platelet Volume 8.8 fL (7.4-10.4); Monocytes # (auto) 1.02 K/uL (0.11-0.59); Monocytes % (auto) 8.7 %; Neutrophils # (auto) 9.56 K/uL (1.4-6.5); Neutrophils % (auto) 81.4 %; Platelet Count 285 K/uL (130-400); RDW Coefficient of Variation 13.5 % (11.5-14.5); RDW Standard Deviation 43.3 fL (36.4-46.3); Red Blood Count 3.96 M/uL (4.7-6.1); White Blood Count 11.75 K/uL (4.8-10.8)
[2019-01-20 08:16] LABS: Albumin Globulin Ratio 0.5 (0.9-2); Albumin Level 2.1 gm/dl (3.4-5.0); BUN Creatinine Ratio 13.7 (10-20); Bilirubin,Total 0.5 mg/dl (0.2-1); Calcium 8.4 mg/dl (8.5-10.1); Creatinine Clr Calc Pharmacy 68.5 ml/min; Est GFR (Non-African American) 88.9; Globulin 3.9 gm/dl (2.5-4.0); Magnesium 1.7 mg/dl (1.8-2.4); Phosphorus 1.8 mg/dl (2.5-4.9); Potassium 3.7 mmol/L (3.5-5.1)
[2019-01-20] MEDS ORDERED: POTASSIUM PHOS 3 MMOL/1 ML INFUSION IV STA (09:23)
[2019-01-20] MEDS ORDERED: POTASSIUM PHOSPHATE 9 MMOL in SODIUM CHLORIDE 0.9% 250 ML IV ONE (09:30)
[2019-01-20] MEDS ORDERED: NITROGLYCERIN 0.3 MG/1 TAB 100 TAB BTL SL PRN (09:54)
--- NOTE | 2019-01-20 09:58 | XRay Report ---
XR chest 1V portable HISTORY: Hypoxia. Atypical chest pain. COMPARISON: Chest 01/16/2019. FINDINGS: Interval development of patchy left basilar airspace opacities. No pneumothorax. Emphysema. The heart remains stable in size. The right lung is clear. No pleural effusions. IMPRESSION: Patchy left basilar airspace opacities which may represent atelectasis or pneumonia. This is new from the prior study. Electronically signed by: Red Oneil M.D. 01/20/2019 9:56 AM
[2019-01-20] MEDS: AMPICILLIN/SULBACTAM SOD 3,000 MG in 0.9 % SODIUM CHLORIDE 100 ML IV SCH ×3 (11:15→22:18)
[2019-01-20] MEDS: MIRTAZAPINE SOLTAB 15 MG PO SCH (20:41)
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
[2019-01-21] MEDS: AMPICILLIN/SULBACTAM SOD 3,000 MG in 0.9 % SODIUM CHLORIDE 100 ML IV SCH ×4 (04:26→23:14)
[2019-01-21] MEDS: FLINTSTONES COMPLETE CHEWABLE TAB PO SCH (08:03)
[2019-01-21] MEDS: ASPIRIN 81 MG ECTAB PO SCH (08:05)
[2019-01-21] MEDS: dexAMETHasone 4 MG TAB PO SCH (08:05)
[2019-01-21] MEDS: PANTOprazole 40 MG TAB PO SCH (08:05)
[2019-01-21] MEDS: FOLIC ACID 1 MG TAB PO SCH (08:05)
[2019-01-21] MEDS: MAGNESIUM OXIDE 400 MG TAB PO SCH ×2 (08:05→20:07)
[2019-01-21] MEDS: PSYLLIUM 58.6% POWDER PACKET PO SCH (08:06)
[2019-01-21] MEDS: THIAMINE HCL 100 MG TAB PO SCH (08:06)
--- NOTE | 2019-01-21 09:52 | Gastrointestinal Consultation ---
Date of Consultation January 21, 2019 Assessment & Plan (1) Pancreatic lesion: Patient is an [address] findings of 1.3 cm of a pancreatic tail lesion. -Size and appearance does not mandate EUS evaluation, but by guidelines would suggest an MRI or CT scan in 1 year to follow-up should patient feel compelled to continue monitoring -Patient has previously declined and cancelled further testing offered from our office in previous visits regarding any further GI work-up Thank you for allowing us to participate in the care of this patient. If you should have any further questions or concerns, do not hesitate to contact us at [email or web address] [phone] or [phone]. Present on Admission?: Yes Supervising Physician Co-Signing Physician Notes Agree with PRAKASH Nesbitt Abd: Soft, NT, ND, +BS Continue current therapy No plans for invasive workup History of Present Illness Reason for Consultation: Pancreatic lesion Attending Physician: Dick Blackwood History of Present Illness Patient is an 83 yo male with a past medical history of failure to thrive, arthritis, constipation, weakness, & malnutrition who presented to the ED with weakness found to have an elevated troponin. During the course of his hospitalization, he had a CT scan of the abdomen/pelvis that incidentally noted a 1.3 cm tail lesion of the pancreas. Previous CT scan from 2018 indicated an "unremarkable" pancreas. The patient does not participate well with my evaluation this morning. He declines to talk and reports he wants to sleep. He was previously evaluated in our office as well as an inpatient in 2018. Sign ificant discussion was held regarding his constipation, diarrhea, & FTT. He and son had cancelled further testing including a FIT test and did not wish to proceed with invasive testing. The patient did not continue to follow-up in our office. Allergies Allergy/AdvReac Type Severity Reaction Status Date / Time No Known Allergies Allergy Unverified 01/16/19 16:37 Home Medications Home Medications Medication Instructions Recorded Confirmed Type No Known Home Medications 01/16/19 01/16/19 History Patient History Medical History Severe protein-calorie malnutrition (Chronic) Weakness (Chronic) Weight loss (Chronic) Dementia Family History Other No pertinent family history Social History Preferred Language: Malian Communication Ability: Impaired Filter Washer And Presser Required: No Beliefs That Will Affect Care: None Current Living Situation: Family Current Living Situation Comment: lives with sonLg current occupational status: retired Feels Safe at Home: Yes Smoking Status: Never smoker Hx Alcohol Use: No Hx Substance Use: No Review of Systems Review of Systems: Other (Patient does not wish to participate in my evaluation and requests to sleep) Physical Exam Constitutional: WD/WN, vitals as above Eyes: conjunctivae normal, anicteric sclerae ENMT: external ears, nose & mouth normal Neck: normal visual inspection Respiratory: lungs clear, poor inspiratory effort Cardiovascular: RRR, no murmur, no edema Gastrointestinal (Abdomen): normal bowel sounds, soft, nontender, no hepatosplenomegaly Musculoskeletal: no cyanosis or clubbing, extremities motor strength 5/5 Skin: no rashes, warm and dry Psychiatric: Orientation: alert Results & Data Vital Signs (Past 12 Hours) Vital Signs Temp Pulse Pulse Resp BP Pulse Ox 01/21/19 09:19 91 H 01/21/19 07:00 36.7 C 70 18 143/81 H 97 01/21/19 03:49 36.6 C 74 16 115/71 94 01/20/19 23:28 86 01/20/19 22:47 36.6 C 64 16 112/65 97 PG Care Time/CCT Total # of Minutes Spent Total Time Spent with Patient: Total time spent is greater than 50% in coordination of care (as documented) at patient's floor/unit and/or counseling patient:
[2019-01-21] MEDS: THIAMINE HCL 200 MG in SODIUM CHLORIDE 0.9% 50 ML IV SCH ×2 (13:31→20:07)
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
[2019-01-22] MEDS: AMPICILLIN/SULBACTAM SOD 3,000 MG in 0.9 % SODIUM CHLORIDE 100 ML IV SCH ×4 (05:18→22:25)
[2019-01-22 07:36] LABS: BUN Creatinine Ratio 9.3 (10-20); C Reactive Protein 5.23 mg/dl (0-0.29); Calcium 7.9 mg/dl (8.5-10.1); Creatinine Clr Calc Pharmacy 69.2 ml/min; Est GFR (African American) 104.3; Magnesium 1.9 mg/dl (1.8-2.4); Potassium 3.7 mmol/L (3.5-5.1)
[2019-01-22] MEDS: ASPIRIN 81 MG ECTAB PO SCH (08:33)
[2019-01-22] MEDS: dexAMETHasone 4 MG TAB PO SCH (08:33)
[2019-01-22] MEDS: FLINTSTONES COMPLETE CHEWABLE TAB PO SCH (08:34)
[2019-01-22] MEDS: FOLIC ACID 1 MG TAB PO SCH (08:35)
[2019-01-22] MEDS: MAGNESIUM OXIDE 400 MG TAB PO SCH ×2 (08:36→21:32)
[2019-01-22] MEDS: PANTOprazole 40 MG TAB PO SCH (08:37)
[2019-01-22] MEDS: PSYLLIUM 58.6% POWDER PACKET PO SCH (08:38)
[2019-01-22] MEDS: THIAMINE HCL 200 MG in SODIUM CHLORIDE 0.9% 50 ML IV SCH ×2 (08:52→21:57)
[2019-01-22] MEDS ORDERED: IOVERSOL 100ml IV PRN (09:50)
--- NOTE | 2019-01-22 10:06 | CT Scan Report ---
CT OF THE CHEST WITH IV CONTRAST CLINICAL HISTORY: wt loss, failure to thrive; r/o chest malignancy COMPARISON STUDY: Chest x-ray dated 01/20/2019 TECHNIQUE: Following the IV administration of 94 mL of Optiray-320, CT of the thorax was performed f rom the thoracic inlet to the lung bases. Images are reviewed in the axial, sagittal, and coronal marie sam. IV contrast was administered without complication. A dose lowering technique was utilized adher ing to the principles of ALARA. CT DOSE: 215.05 mGy.cm FINDINGS: Thyroid: Imaged portions of the thyroid gland are normal in appearance. Thoracic aorta: The thoracic aorta is normal in course and caliber, noting standard 3-vessel arch preston zander. No aneurysm or dissection is seen. Pulmonary vasculature: The pulmonary trunk is normal in caliber. There are no central filling defects identified to suggest pulmonary embolus. Note that this examination was not protocoled for the evalu ation of pulmonary emboli. HEART: The heart is mildly enlarged. There are coronary artery calcifications. Lungs and pleural spaces: There are small bilateral pleural effusions left greater than right. There are dependent airspace opacity statistically atelectatic. There are also areas of right middle lobe a nd lingular volume, likely representing areas of chronic scarring/atelectasis. There is a 9 mm solid left upper lobe pulmonary opacity. A 3 month follow-up study is recommended. Mediastinum: There is no mediastinal lymphadenopathy. Zara: Clear. Axilla: There is no evidence of pathologic axillary lymphadenopathy Upper abdomen: Partially visualized upper abdominal viscera is within normal limits. Skeletal structures: There are no lytic or blastic osseous lesions. IMPRESSION: 1. Bilateral pleural effusions left greater than right 2. Lingular right middle lobe and bilateral lower lobe dependent airspace opacities, likely atelectat ic 3. 9 mm left upper lobe pulmonary nodule. A 3 month follow-up CT scan is recommended. Please refer to below summary of Fleischner criteria recommendations for follow-up of incidental CT n odules (Rae Madden, Guidelines for management of small pulmonary nodules detected on CT scans: A sta tement from the Fleischner Society, Radiology 237: [phone].) SOLID NODULES Solitary nodule size: <6 mm * low risk patients: no follow-up needed * high risk patients: optional CT at 12 months Solitary nodule size: 6-8 mm * low risk patients: follow-up at 6-12 months, then consider further follow-up at 18-24 months * high risk patients: initial follow-up CT at 6-12 months and then at 18-24 months if no change Solitary nodule size: >8 mm * either low or high risk patients - consider follow-up CT at 3 months, and/or CT-PET, and/or biopsy Multiple nodules size: <6 mm * low risk patients: no routine follow-up * high risk patients: optional CT at 12 months Multiple nodules size: 6-8 mm * low risk patients: follow-up at 3-6 months, then consider further follow-up at 18-24 months * high risk patients: follow-up at 3-6 months, then at 18-24 months if no change Multiple nodules size: >8 mm * low risk patients: follow-up at 3-6 months, then consider further follow-up at 18-24 months * high risk patients: follow-up at 3-6 months, then at 18-24 months if no change Note: newly detected indeterminate nodule in persons 35 years of age or older. * low risk patients: minimal or absent history of smoking and/or other known risk factors * high risk patients: history of smoking or of other known risk factors (e.g. first degree relative with lung cancer, or exposure to asbestos, radon, uranium) * if a nodule up to 8 mm is partly solid or is ground glass further follow-up is required after 24 m onths to exclude possible slow growing adenocarcinoma (GISELA) SUBSOLID NODULES Solitary pure ground-glass nodule * nodule size <6 mm - no CT follow-up required * nodule size >=6 mm - follow-up CT at 6-12 months, then every 2 years until 5 years Solitary part-solid nodule * nodule size <6 mm - no CT follow-up required * nodule size >=6 mm - follow-up CT at 3-6 months. If unchanged, and solid component remains <6 mm, then annual follow-up for 5 years Multiple subsolid nodules * nodule size <6 mm - follow-up CT at 3-6 months, consider further follow-up at 2 and 4 years if sta ble * nodule size >=6 mm - follow-up CT at 3-6 months, subsequent management based on the most suspiciou s nodule(s) Electronically signed by: Agustin Waldron M.D. 01/22/2019 10:05 AM
--- NOTE | 2019-01-22 11:56 | Palliative Care Progress Note ---
Date of Service January 22, 2019 Assessment & Plan (1) Goals of care, counseling/discussion: -Patient more awake today. Oriented x4. Limited insight into his situation. -Patient states he does not want aggressive care, does not want invasive testing, etc. However, he says, "I want to get better." Asked what "get better" means to him, and he said he wants to be able to walk and be independent again. When I asked if he was willing to go to rehab then, he said, "I don't believe in rehab. I thought there would just be a magic pill you could give me to make me better." -CT chest obtained today to r/o malignancy that does show a nodule. Hospitalist managing. -Patient remains weak to the point that two nurses were unable to get him out of bed. Need to continue having discussions with patient about his condition, goals of care, and discharge planning. Case management is following. (2) Multiple lacunar infarcts: (3) Pancreatic lesion: (4) Adult failure to thrive: (5) Weakness: (6) Skin breakdown: (7) Severe protein-calorie malnutrition: Subjective Patient more awake today. Oriented x4. Limited insight into his situation. C/o generalized pain. Review of Systems Review of Systems: Const: + generalized weakness Resp: No SOB, no cough Cardio: No chest pain, no edema GI: No abdominal pain, no N/V MS: + back, lower extremity and generalized pain Neuro: No confusion Psych: No anxiety Physical Exam Constitutional: + thin and + frail appearing; no acute distress ENMT: external ear and nose normal, oropharynx normal Neck: normal visual inspection Respiratory: normal respiratory effort Auscultation: + diminished lung sounds Cardiovascular: Rate/Rhythm: regular rate and regular rhythm Gastrointestinal (Abdomen): Inspection/Auscultation: normal bowel sounds Percussion/Palpation: abdomen soft Psychiatric: Orientation: alert and oriented x 3 Insight: + limited insight Results & Data Vital Signs (Past 12 Hours) Vital Signs Temp Pulse Resp BP Pulse Ox 01/22/19 11:09 36.6 C 80 18 133/82 98 01/22/19 07:39 36.4 C L 66 20 135/77 99 Time Spent Midlevel 35 minutes with >50% of the time spent at bedside with patient and nursing staff discussing condition and GOC.
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
[2019-01-22] MEDS: DICLOFENAC SOD 1% GEL 100 GM TUBE EXT SCH (21:38)
[2019-01-23] MEDS: AMPICILLIN/SULBACTAM SOD 3,000 MG in 0.9 % SODIUM CHLORIDE 100 ML IV SCH (04:56)
[2019-01-23] MEDS: dexAMETHasone 4 MG TAB PO SCH (08:13)
[2019-01-23] MEDS: ASPIRIN 81 MG ECTAB PO SCH (08:14)
[2019-01-23] MEDS: MAGNESIUM OXIDE 400 MG TAB PO SCH ×2 (08:17→20:52)
[2019-01-23] MEDS: FOLIC ACID 1 MG TAB PO SCH (08:17)
[2019-01-23] MEDS: PSYLLIUM 58.6% POWDER PACKET PO SCH (08:18)
[2019-01-23] MEDS: FLINTSTONES COMPLETE CHEWABLE TAB PO SCH (08:20)
[2019-01-23] MEDS: ERGOCALCIFEROL 50,000 UNITS CAP PO SCH (08:24)
[2019-01-23] MEDS: THIAMINE HCL 200 MG in SODIUM CHLORIDE 0.9% 50 ML IV SCH (08:25)
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
[2019-01-23] MEDS: DICLOFENAC SOD 1% GEL 100 GM TUBE EXT SCH ×4 (10:21→20:52)
[2019-01-23] MEDS: AMOXICILLIN/CLAVULANATE 875 MG TAB PO SCH ×2 (12:09→17:17)
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
[2019-01-23] MEDS: THIAMINE HCL 100 MG TAB PO SCH (20:52)
[2019-01-23] MEDS: DOCUSATE SODIUM 100 MG CAP PO SCH (20:52)
[2019-01-24 07:26] LABS: BUN Creatinine Ratio 22.4 (10-20); Calcium 7.7 mg/dl (8.5-10.1); Creatinine Clr Calc Pharmacy 48.4 ml/min; Est GFR (African American) 95.3; Est GFR (Non-African American) 82.2; Potassium 4.2 mmol/L (3.5-5.1)
[2019-01-24 07:28] VITALS: PULSE 67; TEMP 97.3; O2SAT 98
[2019-01-24] MEDS: AMOXICILLIN/CLAVULANATE 875 MG TAB PO SCH (08:53)
[2019-01-24] MEDS: FLINTSTONES COMPLETE CHEWABLE TAB PO SCH (08:55)
[2019-01-24] MEDS: ASPIRIN 81 MG ECTAB PO SCH (08:55)
[2019-01-24] MEDS: MAGNESIUM OXIDE 400 MG TAB PO SCH (08:56)
[2019-01-24] MEDS: FOLIC ACID 1 MG TAB PO SCH (08:56)
[2019-01-24] MEDS ORDERED: dexAMETHasone 1 MG TAB PO SCH (09:00)
[2019-01-24] MEDS: THIAMINE HCL 100 MG TAB PO SCH (09:00)
[2019-01-24] MEDS: PSYLLIUM 58.6% POWDER PACKET PO SCH (09:00)
[2019-01-24] MEDS: DOCUSATE SODIUM 100 MG CAP PO SCH (09:03)
[2019-01-24] MEDS: DICLOFENAC SOD 1% GEL 100 GM TUBE EXT SCH ×2 (09:04→12:39)
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
[2019-01-24 14:55] VITALS: BP 144/80
== END 2019-01-24 16:55 | DRG 640 ==
LOC: ED 15:37 → SUATTDRO 20:04 → 2E 20:04 → 2W 01-17 22:11
DX: I21.4 Non-ST elevation (NSTEMI) myocardial infarction; J69.0 Pneumonitis due to inhalation of food and vomit; R63.0 Anorexia; R62.7 Adult failure to thrive; K59.00 Constipation, unspecified; E43 Unspecified severe protein-calorie malnutrition; R53.1 Weakness; I63.81 Other cerebral infarction due to occlusion or stenosis of small artery; E86.0 Dehydration; I24.8 Other forms of acute ischemic heart disease; L89.319 Pressure ulcer of right buttock, unspecified stage; L89.219 Pressure ulcer of right hip, unspecified stage; Z51.5 Encounter for palliative care